=== PATIENT | female | born 1960 | race Asian ===

== ENCOUNTER → 2016-06-26 | Outpatient (CLI) | payer BC ==
[~2016-06-26] MED LIST: ASCO10004 PO; CALC1CAP9 PO; CHOL20003 PO; OMEG-137 PO; SELE100T PO; TURM500C7 PO
[2016-06-26 15:26] LABS: HEMOGLOBIN 15.3 g/dL (11.7-16.4)
[2016-06-26 15:35] LABS: ASPARTATE AMINO TRANSFERASE 23 U/L (15-37); BLOOD UREA NITROGEN 12 mg/dL (7-18)
== END | disposition home or self-care (01) ==
LOC: STAR 14:09
PROVIDERS: ATTEND Thoracic Surgery (Cardiothoracic Vascular Surgery)
DX: Z01.818 Encounter for other preprocedural examination (principal)
CPT/HCPCS: 36415; 80053; 85025; 93005

== ENCOUNTER 2016-07-02 10:05 | Inpatient (IN) | payer BC ==
[~2016-07-02] VITALS: Ht 160 cm; Wt 59.0 kg
[~2016-07-02 10:05] MED LIST changes: +BUPIVACAINE/PF-EPI 0.25% 1:200K ONE; +FENTANYL PF 250 MCG/5ML ONE; +MIDAZOLAM 1 MG/ML, 2ML ONE
[2016-07-02 11:01] VITALS: BP 152/92
[2016-07-02] MEDS ORDERED: NEOSTIGMINE 1 MG/ML, 10ML ONE (11:55)
[2016-07-02] MEDS ORDERED: PROPOFOL 10 MG/ML, 20ML ONE (11:55)
[2016-07-02] MEDS ORDERED: DEXAMETHASONE 4 MG/ML, 1ML ONE (11:55)
[2016-07-02] MEDS ORDERED: GLYCOPYRROLATE 0.2MG/1ML ONE (11:55)
[2016-07-02] MEDS ORDERED: CARBOPROST TROMETHAMINE 250 MCG/ML, 1ML IM ONE (11:55)
[2016-07-02] MEDS ORDERED: SUCCINYLCHOLINE 20 MG/ML, 10ML ONE (11:55)
[2016-07-02] MEDS ORDERED: ONDANSETRON 2MG/ML, 2ML ONE (11:55)
[2016-07-02] MEDS ORDERED: ROCURONIUM 10 MG/ML ONE (11:55)
[2016-07-02] MEDS: LACTATED RINGERS 1,000 ML IV SCH (12:49)
[2016-07-02] MEDS ORDERED: hydrALAzine 20 MG/ML, 1ML IVPush PRN (13:00)
[2016-07-02] MEDS ORDERED: DIPHENHYDRAMINE 50 MG/ML, 1ML IVPush PRN (13:00)
[2016-07-02] MEDS ORDERED: morphine SULFATE 10 MG/ML, 1ML IVPush PRN (13:00)
[2016-07-02] MEDS ORDERED: ENALAPRILAT 1.25 MG/ML, 2ML IVPush PRN (13:00)
[2016-07-02] MEDS ORDERED: DIPHENHYDRAMINE 25 MG CAPSULE PO PRN (13:00)
[2016-07-02] MEDS ORDERED: LORazepam 0.5MG TABLET PO PRN (13:00)
[2016-07-02] MEDS ORDERED: ONDANSETRON 2MG/ML, 2ML IVPush PRN ×2 (13:00→13:30)
[2016-07-02] MEDS ORDERED: ACETAMINOPHEN 325 MG TABLET PO PRN ×2 (13:00→13:30)
[2016-07-02] MEDS ORDERED: LORazepam 2 MG/ML, 1ML IVPush PRN (13:00)
[2016-07-02] MEDS ORDERED: OXYcodone 5 MG/5 ML ORAL.SOL UDC ONE (13:20)
[2016-07-02] MEDS ORDERED: FENTANYL PF 100 MCG/2ML ONE (13:20)
[2016-07-02] MEDS: FENTANYL PF 100 MCG/2ML IV PRN ×4 (13:23→13:43)
[2016-07-02] MEDS ORDERED: HYDROmorphone 1 MG/ML, 1ML IV PRN (13:30)
[2016-07-02] MEDS ORDERED: METOCLOPRAMIDE 5 MG/ML, 2ML IV PRN (13:30)
[2016-07-02] MEDS ORDERED: LABETALOL 5MG/ML, 20ML IV PRN (13:30)
[2016-07-02] MEDS ORDERED: hydrALAzine 20 MG/ML, 1ML IV PRN (13:30)
[2016-07-02] MEDS ORDERED: OXYcodone 5 MG/5 ML ORAL.SOL UDC PO PRN (13:30)
[2016-07-02 14:52] VITALS: BP 126/76
[2016-07-02] MEDS: HYDROcodone/APAP 5/325 TABLET PO PRN (16:57)
[2016-07-02] MEDS: FAMOTIDINE 20 MG/2 ML IVPush SCH (16:57)
[2016-07-02 19:50] VITALS: BP 119/79
[2016-07-02] MEDS: CEFAZOLIN PMX 1GM/50ML 50 ML IVPB SCH (20:20)
[2016-07-03 00:19] VITALS: BP 103/60
[2016-07-03] MEDS: FAMOTIDINE 20 MG/2 ML IVPush SCH (03:44)
[2016-07-03] MEDS: CEFAZOLIN PMX 1GM/50ML 50 ML IVPB SCH ×2 (03:44→11:26)
[2016-07-03 05:02] LABS: HEMOGLOBIN 12.6 g/dL (11.7-16.4)
[2016-07-03 05:14] LABS: BLOOD UREA NITROGEN 10 mg/dL (7-18)
[2016-07-03 07:50] VITALS: BP 105/65
[2016-07-03] MEDS ORDERED: ENOXAPARIN 40 MG/0.4 ML SQ SCH (09:00)
[2016-07-03] MEDS: HYDROcodone/APAP 5/325 TABLET PO PRN (12:40)
[2016-07-03] MEDS: LACTATED RINGERS 1,000 ML IV SCH ×2 (13:34)
[2016-07-03 14:10] VITALS: BP 117/72
== END 2016-07-03 15:29 | disposition home or self-care (01) | DRG 165 ==
LOC: ORIP 10:05 → 4NOR 14:25 → DCLOUNGE 07-03 15:15
PROVIDERS: ADMIT Thoracic Surgery (Cardiothoracic Vascular Surgery); ATTEND Thoracic Surgery (Cardiothoracic Vascular Surgery)
PROC: 0BBJ4ZZ Excision of Left Lower Lung Lobe, Percutaneous Endoscopic Approach (ICD-10-PCS; principal; 2016-07-02 12:00)
DX: D38.1 Neoplasm of uncertain behavior of trachea, bronchus and lung (principal); Z72.89 Other problems related to lifestyle; D18.03 Hemangioma of intra-abdominal structures
CPT/HCPCS: 36415; 71010; 80048; 85025; 86850; 86900; 86923; 88309; C1729; J0690; J1100; J1650; J2250; J2405; J2704; J2710; J3010; J3490; J0330; J7120; S0028